=== PATIENT | male | born 1965 | race African-American/Black ===

== ENCOUNTER 2021-07-29 23:44 | Inpatient (IN) | payer OTHER ==
[~2021-07-29] VITALS: Ht 175.3 cm; Wt 139.7 kg
--- NOTE | ~2021-07-29 | EMS ---
[address] [address] EMS Patient Care Report Name: FLOWER HENLEY Room #: 448-P ADM IN M.R.#: [id number] Admission: 07/30/21 Attend Phys: Rosmery Nino MD Discharge: Date of : 67 Report #: [id number] THIS REPORT FOR: //name// Report Transmitted: 07/30/2021 09:49 EMS Care Summary [place], [place]/[facility] Incident [id number] @ 07/29/2021 22:57 Incident Location [address] [place], [place] [id number] Patient FLOWER HENLEY Male, 55 Years 1965 Patient Address [address] [place], [place] [id number] Patient History Diabetes,Hypertension (HTN),Stroke/CVA, Patient Allergies No known allergies, Patient Medications Insulin, Metformin, Chief Complaint BILATERAL LEG WEAKNESS Disposition Transported No Lights/[place] Dispatch Reason Falls Transported To [facility] Narrative PUMPER 30/MEDIC 30 WERE DISPATCHED TO THE ADDRESS LSITED PREVIOUSLY IN THIS REPORT ON A FALL. UPON ARRIVAL, EMS ONBSERVED ONE MALE APTIENT SITNNG UPRIGN ON A COUCH. PATIENT WAS TRACKING EMS UPON APPROACH. PATIENT INFOREMD EMS THAT HE HAD FALLEN TWO HOURS PRIOR TO EMS ARRIVAL, PATIENT STATED THAT HE HAD BEEN [facility] [address] [place] [address] EMS Patient Care Report Name: FLOWER HENLEY Room #: 448-P [facility] IN M.R.#: [id number] Admission: 07/30/21 Attend Phys: Rosmery Nino MD Discharge: Date of : 67 Report #: [id number] HAVING INCREASING WEAKNESS IN HIS LEGS AND WAS NO LONGER AMBLE TO AMBULATE. PATIENT WAS THEN PLACED ON A STAIRCHAIR, MOVED TO THE COT AND LOADED INTO THE AMBULANCE WITHOUT INCIDENT. ONCE IN THE AMBULANCE, VITAL SIGN MONITORING CONTINUED. ONCE ENROUTE TO THE RECEIVING FACILITY ([facility] VITAL SIGN MONITORING CONTINUED AND RADIO REPORT WAS GIVEN. UPON ARRIVAL AT THE RECEIVING FACILITY, PATIENT WAS MOVED FROM THE AMBULANCE TO THE HOSPITAL COT WITHOUT INCIDENT. VERBAL REPORT WAS GIVEN TO THE PATIENT'S NURSE AND PATIENT CARE WAS TRANSFERRED. Initial Vitals @23:25P: 109,R: 16,BP: 136/73,Pain: 0/10,GCS: 15,Temp: 100.1F,CO: 6,SpO2: 96,Revised Trauma: 12, Assessments @23:04MENTAL:Event Oriented,Time Oriented,Person Oriented,Place Oriented,SKIN:HEENT:LUNG SOUNDS:ABDOMEN:PELVIS//GI:EXTREMITIES:Right Leg: Weakness,Left Leg: Weakness,PULSE:Radial: 2+ Normal,NEURO: Impression Generalized Weakness Procedures @23:04ALS AssessmentResponse: UnchangedSucceeded Timeline 22:56,Call Received 22:56,Dispatch Notified 22:57,Dispatched 22:59,En Route 23:03,On Scene 23:04,At Patient 23:04,ALS Assessment,Response: UnchangedSucceeded, 23:25,BP: 136/73 M,PULSE: 109,RR: 16 R,SPO2: 96 Ox,ETCO2: ,BG: ,PAIN: 0,GCS: 15, 23:27,Depart Scene 23:40,At Destination 00:10,Call Closed Disclaimer v1.1 Copyright 2020 [email or web address], [employer] This EMS Care Summary contains data elements from the applicable legal record (which may be displayed differently). It is designed to provide pertinent information for the following purposes: continuity of care, clinical quality, and state data reporting. The complete legal record is available to ED staff and administrators of the receiving hospital in [employer] Patient Tracker. All data is provided "as is."
[~2021-07-29 23:44] MED LIST: CARVEDILOL12.5 MG PO; LIPITOR40 MG PO; METFORMIN HCL500 M3 PO; NORVASC10 MG PO
[2021-07-29 23:53] VITALS: BP 154/70
[2021-07-30 01:52] LABS: URINE BILIRUBIN 1+ (Negative); URINE BLOOD 1+ (Negative); URINE CLARITY CLEAR; URINE COLOR YELLOW; URINE GLUCOSE-RANDOM* 3+ (Negative); URINE KETONES 2+ (Negative); URINE LEUKOCYTES-REFLEX NEGATIVE (Negative); URINE NITRITE-REFLEX NEGATIVE (Negative); URINE PROTEIN (DIPSTICK) 2+ (Negative); URINE SPECIFIC GRAVITY 1.015 (1.005-1.035)
[2021-07-30 02:08] LABS: CASTS None Seen /LPF (None Seen); MUCUS 0-3 Light strn/LPF (None Seen); SQUAMOUS 0-3 Few /LPF (0-3); URINE RBC 1-2 Rare /HPF (NONE SEEN)
[2021-07-30 02:09] LABS: BACTERIA-REFLEX None Seen /HPF (None Seen); CRYSTALS None Seen /LPF (None Seen); URINE WBC-REFLEX None Seen /HPF (0-5)
[2021-07-30 02:10] LABS: ABSOLUTE NEUTROPHILS 13.8 thou/uL (1.4-8.2); BASOPHILS 0.4 % (0.0-2.0); HEMATOCRIT 32.7 % (42.0-52.0); HEMOGLOBIN 10.6 gm/dL (14.0-18.0); MCH 29.2 pg (26.0-34.0); MCHC 32.2 g/dL (28.0-37.0); MCV 90.5 fL (80.0-100.0); MONOCYTES 6.9 % (1.0-8.0); PLATELET COUNT 216 thou/uL (150-400); POLYS 84.7 % (36.0-66.0); RBC 3.62 mil/uL (4.50-6.00); WBC 16.3 thou/uL (4.0-11.0)
[2021-07-30 02:22] LABS: ALBUMIN 2.5 g/dL (3.4-5.0); CALCIUM 8.1 mg/dL (8.5-10.1); POTASSIUM 3.6 mmol/L (3.5-5.1); TOTAL BILIRUBIN 1.3 mg/dL (0.2-1.0); TOTAL PROTEIN 7.9 g/dL (6.4-8.2)
--- NOTE | 2021-07-30 07:10 | EKG ---
[address] [address] ELECTROCARDIOGRAM REPORT Name: FLOWER HENLEY Room #: 170-1 ADM IN M.R.#: [id number] Admission: 07/30/21 Attend Phys: Rosmery Nino MD Discharge: Date of : 67 Report #: [id number] [facility] ED Test Date: 2021-07-29 Test Time: 23:49:06 Pat Name: FLOWER HENLEY Department: Room: 170 Gender: M Claim Technician: kelly : 1965 Requested By: Bharathi Rizvi Order Number: [id number] MD: Simba Rousseau Measurements Intervals [place] Rate: 102 P: 138 PA: 208 QRS: -15 QRSD: 90 T: 177 QT: 346 QTc: 451 Interpretive Statements Sinus tachycardia Prolonged PA interval LVH with secondary repolarization abnormality Anterior Q waves, possibly due to LVH No previous ECG available for comparison Electronically Signed On 07-30-2021 7:10:12 CDT by Simba Rousseau [email or web address] <ELECTRONICALLY SIGNED> By: Simba Rousseau MD, [facility] 07/30/21 0710 [id number] [id number] Simba Rousseau MD, FACC /EPI
[2021-07-30 07:32] VITALS: BP 118/53
[2021-07-30 07:38] VITALS: BP 116/52
[2021-07-30 08:45] VITALS: BP 141/69
--- NOTE | 2021-07-30 10:25 | NUR ---
Pt transferred jordin unit from ED. Pt a&px4. Reports weakness in BLE. IVF and IV antibiotics infusing. No open wound observed on pt's buttocks or back. RA. ID and wound care consulted. Call light within reach. Fall precautions in place. Will continue to monitor.
[2021-07-30 11:33] VITALS: BP 150/78
[2021-07-30 15:19] VITALS: BP 143/71
--- NOTE | 2021-07-30 16:05 | NUR ---
ASSESSMENT: CM REVIEWD CHART AND SPOKE WITH PATIENT. PT APPEARS ALERT AND ORIENTED X4. PT WAS ADMITTED WITH SEPSIS AND GLUTEAL WOUND. WOUND CARE IS FOLLOWING AND PT IS CURRENTLY ON IV ANBX. PER RECORDS PT HAS A HX OF CVA. PT REPORTS LIVING IN A HOUSE WITH HIS SISTER AND HER . PT REPORTS HE IS INDEPENDENT WITH ADLS AND AMBULATION. PT REPORTS NO PAST HX OF HH OR SNF. PT REPORTS HE DOES NOT HAVE ANY DME. CM WILL CONTINUE TO FOLLOW TO ASSIST NEEDED.
[2021-07-30 20:29] VITALS: BP 149/69
[2021-07-31] VITALS (8 sets, daily range): BP systolic 165–173; BP diastolic 75–89
[2021-07-31 04:07] LABS: GLYCOHEMOGLOBIN (HGB A1C) 14.5 % (4.8-5.6)
--- NOTE | 2021-07-31 06:00 | HC ---
[facility] [place] [address] CONSULTATION Name: FLOWER HENLEY Room #: 448-P ADM IN M.R.#: [id number] Admission: 07/30/21 Attend Phys: Rosmery Nino MD Discharge: Date of : 67 Report #: [id number] THIS REPORT FOR: cc: FAM - Family physician unknown FAM - Family physician unknown Timbo Rios MD ~ DATE OF SERVICE: 07/30/2021 INFECTIOUS DISEASE CONSULTATION ATTENDING PHYSICIAN: Dr. Nino. REASON FOR EVALUATION: Progressive weakness. HISTORY OF PRESENT ILLNESS: The patient with uncontrolled diabetes mellitus. It is not clear that he has had otherwise localizing signs. States he was just unable to get up, ____ fevers, chills and now his appetite has been satisfactory. On evaluation, coronavirus testing was negative. Urinalysis was generally unremarkable. Sed rate, however, was elevated markedly at greater than 125. CBC elevated at 16.3 for a white count and he was anemic at 10.6 hemoglobin. Creatinine was 2.0 and glucose was 610. Sodium perhaps artificially low at 129. Procalcitonin mildly elevated at 1.76. Lactic acid 1.3. Imaging of the spine including the sacrum and lumbar spine was otherwise unrevealing. Chest x-ray showed no acute process. Blood cultures have been collected and are in progress, so empirically started on ceftriaxone and vancomycin. ALLERGIES: None known. CURRENT MEDICATIONS: Include vancomycin, enoxaparin, p.r.n. analgesics, antiemetics. PAST MEDICAL HISTORY: Diabetes mellitus, poorly controlled; hypertension; previous stroke with left-sided weakness. SOCIAL HISTORY: Nonsmoker, occasional ethanol. FAMILY HISTORY: Noncontributory. REVIEW OF SYSTEMS: Otherwise, unremarkable. PHYSICAL EXAMINATION: GENERAL: He is pleasant, alert, cooperative, moderately obese, mild to moderate distress. He is generally lucid. VITAL SIGNS: Temperature 98.2, temperature earlier 100.4 orally; pulse 85; respirations 16; blood pressure 141/69. [facility] [address] [place] [address] CONSULTATION Name: FLOWER HENLEY Room #: [address] [place] [address] [place] [facility].#: [id number] Admission: 07/30/21 Attend Phys: Rosmery Nino MD Discharge: Date of : 67 Report #: [id number] SKIN: Warm, dry, no rashes. HEENT: Normocephalic. Extraocular muscles intact. NECK: Supple. LUNGS: Diminished breath sounds. HEART: Regular. I do not appreciate a murmur. ABDOMEN: Mildly firm, distended, nontender. EXTREMITIES: No cyanosis. There is a questionable area on his right posterior thigh, buttock site. It was opened, although evaluation did not see clear ulcer. GENITOURINARY AND RECTAL: Deferred. DIAGNOSTIC AND LABORATORY DATA: Imaging of the lumbar spine, no evidence of epidural abscess, ____ canal stenosis and ____ no evidence of osteomyelitis. Electrolytes: Sodium 129, potassium 3.6, chloride 93, bicarbonate is 23, anion gap of 13, BUN and creatinine 12 and 2.0, glucose of 612, total bilirubin 1.3, albumin 2.5, total protein 7.9. CBC: White count 16.3, H and H 10.6 and 32.7, platelets of 216. Sed rate greater than 25. ProBNP of 1154. Urinalysis unremarkable. ASSESSMENT AND PLAN: Low-grade fevers, difficult to ascertain if this is primary component of his illness including progressive weakness. He does have marked inflammatory marker elevation. Blood cultures are pending. Certainly cannot exclude septicemia, as not entirely clear about the source. We will go ahead and continue empiric therapy with ceftriaxone and vancomycin. It is reasonable to check a CT abdomen and pelvis to exclude an occult process at this point. It may simply be just uncontrolled diabetes mellitus with poor compliance to his medical regimen. He is certainly at risk for additional complications. <ELECTRONICALLY SIGNED> By: Timbo Rios MD 07/31/21 0600 1009 [id number] Timbo Rios MD /nt
[2021-07-31 06:51] LABS: HEMATOCRIT 29.6 % (42.0-52.0); HEMOGLOBIN 9.7 gm/dL (14.0-18.0); MCH 29.3 pg (26.0-34.0); MCHC 32.7 g/dL (28.0-37.0); MCV 89.5 fL (80.0-100.0); RBC 3.31 mil/uL (4.50-6.00); RDW 13.2 % (10.5-14.5); WBC 12.8 thou/uL (4.0-11.0)
[2021-07-31 07:01] LABS: CREATININE 1.3 mg/dL (0.7-1.3); POTASSIUM 3.3 mmol/L (3.5-5.1)
--- NOTE | 2021-07-31 08:19 | NUR ---
ASSUMED CARE AT 1900, PT LAYING COMFORTABLY IN BED, REPORTS NO PAIN OR DISCOMFORT, CALL LIGHT WITHIN REACH, PURULENT DRAINAGE NOTED ON THE COCCYX, CARSON CARE PROVIDED, REPORTS NO PAIN, REPOSITIONED EVERY TWO HOURS AND NEEDED, DISCOLORATION NOTED ON BILAT EXTREMITY, TOLARATED TX WELL, NO ADVERSE REACTION NOTED SLEPT THROUGH THE NIGHT. WILL CONTINUE TO MONITOR.
--- NOTE | 2021-07-31 18:43 | NUR ---
Pt A & O x4. Pt had surgery this shift. pt VS stable. pt received medications as ordered. Pt is room air. Pt is able to make needs known.
--- NOTE | 2021-08-01 04:00 | NUR ---
BP ELEVATED, HOME MEDS RESTARTED, BETTER THIS AM. PAIN MANAGED BY OXYCODONE.POST OP DRSG TO R GLUTEAL FOLD-OFF LOADED NEEDED. GROIN CLEANED AND NYSTATIN POWDER APPLIED.
[2021-08-01 05:18] VITALS: BP 136/62
[2021-08-01 06:05] LABS: HEMATOCRIT 29.2 % (42.0-52.0); HEMOGLOBIN 9.6 gm/dL (14.0-18.0); MCH 29.4 pg (26.0-34.0); MCHC 32.8 g/dL (28.0-37.0); MCV 89.6 fL (80.0-100.0); RBC 3.26 mil/uL (4.50-6.00); RDW 13.3 % (10.5-14.5); WBC 10.3 thou/uL (4.0-11.0)
[2021-08-01 07:04] LABS: CALCIUM 7.5 mg/dL (8.5-10.1); CREATININE 1.3 mg/dL (0.7-1.3); POTASSIUM 3.4 mmol/L (3.5-5.1)
[2021-08-01 09:16] VITALS: BP 151/71
[2021-08-01 13:00] VITALS: BP 130/63
--- NOTE | 2021-08-01 16:22 | NUR ---
ASSUMED CARE OF PT AT 0700 THIS MORNING. PT IS A/OX4 AND HAD NO COMPLAINTS AT THIS TIME. WOUND DR. MOCTEZUMAED DRESSING AND PT DID START TO HURT WORSE. PT GIVEN PAIN MEDS. WOUND IN ON THE LT COCCYX AREA AND DRESSING IS C/D/I. ASSESSMENTS NOTED IN CHART AND OTHERWISE UNREMARKABLE. PT IS BED BOUND DUE TO WEAKNESS AND FEVER. PT'S TEMP HAS BEEN AFEBRIAL THROUGHOUT THE SHIFT. FALL PRECAUTIONS ARE IN PLACE, MEDS AND TX GIVEN NEEDED AND SCHEDULED. WILL MONITOR AND NOTE ANY CHANGES.
[2021-08-01 16:35] VITALS: BP 132/64
[2021-08-01 19:48] VITALS: BP 119/60
--- NOTE | 2021-08-02 03:01 | NUR ---
ASSUMED CARE OF PT AT 1900. BEDSIDE REPORT RECIEVED. GALA ASSESSMENT COMPLETE. PT C/O 6/10 BUTTOCKS PAIN. UTILIZED PAIN MEDS AND REPOSITIONING FOR COMFORT. TELE LEADS REPLACED. MEDS GIVEN ORDERED. INSULIN GIVE PER DEC, NURSE VERIFICATION DONE. IVF RUNNING ORDERED. WOUND DRSG CDI, BARRIER CREAM APPLIED. USES URINAL AND BEDPAN. REFILLED WATER. ALL NEEDS MET. CALL LIGHT IN REACH.
[2021-08-02 04:59] VITALS: BP 132/66
[2021-08-02 05:45] LABS: CALCIUM 7.1 mg/dL (8.5-10.1); CREATININE 1.6 mg/dL (0.7-1.3); POTASSIUM 3.4 mmol/L (3.5-5.1)
[2021-08-02 05:50] LABS: HEMATOCRIT 27.1 % (42.0-52.0); HEMOGLOBIN 9.1 gm/dL (14.0-18.0); MCHC 33.4 g/dL (28.0-37.0); MCV 89.8 fL (80.0-100.0); RBC 3.02 mil/uL (4.50-6.00); RDW 13.6 % (10.5-14.5); WBC 9.5 thou/uL (4.0-11.0)
[2021-08-02 08:21] VITALS: BP 145/61
[2021-08-02 08:37] VITALS: BP 102/52
--- NOTE | 2021-08-02 12:57 | NUR ---
RE-ASSUMED CARE OF PT AT 0700 THIS MORNING. ASSESSMENTS NO CHANGE AND NOTED IN CHART AND OTHERWISE UNREMARKABLE. CHANGED PT'S DRESSING AND PACKING THIS MORNING WITH DR. WILCOX. NO OTHER CHANGES NOTED. FALL PRECAUTIONS ARE IN PLACE. CALL LIGHT AND OTHER NEEDS ARE IN REACH. MEDS AND TX GIVEN NEEDED AND SCHEDULED. WILL MONITOR AND NOTE ANY CHANGES.
--- NOTE | 2021-08-02 15:50 | NUR ---
Discussed during los with the hospitalist. Possible ready for dc today or tomorrow. He getting IV abx and wound care. Medicaid, will see if going to need hh nurse only. Spoke with kerry, education on hh for nurse only r/t his tx and area. he will not be able to change his on dressing with the location. Kerry voice any home health is fine.
[2021-08-02 16:14] VITALS: BP 153/62
[2021-08-02 16:34] VITALS: BP 153/62
[2021-08-02 19:56] VITALS: BP 152/76
[2021-08-03 04:12] VITALS: BP 138/67
[2021-08-03 05:51] LABS: HEMATOCRIT 27.8 % (42.0-52.0); HEMOGLOBIN 9.1 gm/dL (14.0-18.0); MCH 29.3 pg (26.0-34.0); MCHC 32.5 g/dL (28.0-37.0); RBC 3.09 mil/uL (4.50-6.00); RDW 13.4 % (10.5-14.5)
[2021-08-03 06:12] LABS: CALCIUM 7.2 mg/dL (8.5-10.1); CREATININE 1.8 mg/dL (0.7-1.3); POTASSIUM 3.4 mmol/L (3.5-5.1)
--- NOTE | 2021-08-03 06:39 | NUR ---
Pt A/OX4,VSS. C/o pain to right buttocks medicated with Oxy at shift change with relief reported,declines need for pain meds at this time. Dsg in place on buttock. Voiding per urinal at NOC,had an episode of incontinence at night. SR on telemetry. Fall precautions in place,
[2021-08-03 08:05] VITALS: BP 164/78
--- NOTE | 2021-08-03 08:40 | HC ---
[facility] [place] [address] CONSULTATION Name: LORYFLOWER Room #: 448-P [facility] IN M.R.#: [id number] Admission: 07/30/21 Attend Phys: Rosmery Nino MD Discharge: Date of : 67 Report #: [id number] THIS REPORT FOR: cc: FAM - Family physician unknown FAM - Family physician unknown Aguilar Richardson MD ~ DATE OF SERVICE: 08/01/2021 REASON FOR CONSULTATION: Status post Dr. David Mckeon incision and drainage, right gluteal abscess. HISTORY OF PRESENT ILLNESS: The patient is a 55-year-old gentleman with diabetes mellitus type 2 and history of cerebrovascular accident, who presented to the Emergency Room after evaluation for leg weakness and a fall. He had also noticed that he had pain in his right buttock for about a week. He has been applying Vaseline. The patient was noted to have an abscess of the right buttock clinically. White blood count was 16.3. The patient was taken to the operating room by Dr. David Mckeon on 07/31/2021 for incision and drainage of a right gluteal abscess. Dr. Mckeon drained the right gluteal abscess in the operating room and white blood count subsequently, which was 16.3 on 07/30/2021, was 12.8 yesterday 07/31/2021 and is 10.3 today 08/01/2021. The patient remained afebrile. He has less pain now that the abscess has been drained. Abscess cavity was packed with Kerlix. The patient is on IV antibiotics, ceftriaxone and vancomycin. Wound cultures are pending. PAST MEDICAL HISTORY: 1. Diabetes mellitus type 2. Takes metformin. 2. Hypertension. 3. Status post cerebrovascular accident. 4. Recent weakness and a fall. ALLERGIES: No known drug allergies. REVIEW OF SYSTEMS: Noncontributory. LABORATORY: White blood count was 16.3, now 10.3, albumin 2.5. PHYSICAL EXAM: GENERAL: Shows a well-appearing, morbidly obese gentleman who is alert, pleasant and conversant. Focused physical examination shows incision and drainage site of the right anterior buttock near the anus. This is a linear 4 cm incision. Large amount of Kerlix packing is removed. There is some foul odor with no obvious purulence. Wound cavity was repacked with plain Kerlix and an order placed for 1-inch plain gauze packing strips soaked in quarter strength Dakin's gauze. [address] [address] CONSULTATION Name: FLOWER HENLEY Room #: 448-P [facility] IN [facility]#: [id number] Admission: 07/30/21 Attend Phys: Rosmery Nino MD Discharge: Date of : 67 Report #: [id number] IMPRESSION: 1. Morbid obesity. 2. 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 3. Status post cerebrovascular accident. 4. Right gluteal abscess, status post incision and drainage. PLAN: IV antibiotics, pack wound daily with 1-inch plain gauze packing strips soaked in quarter-inch Dakin's gauze. Wound care team will follow. Continue IV antibiotics. <ELECTRONICALLY SIGNED> By: Aguilar Richardson MD 08/03/21 0840 1001 1348 Aguilar Richardson MD /nt
--- NOTE | 2021-08-03 10:40 | NUR ---
Pt with gluteal abscess s/p debridement. Hx CVA, DM, HTN, class III obesity with BMI of 45.5. On IV abx. BG appear poor controlled with A1C 14.5, in hospital BG much improved 194-235 with insulin. Attempted visit, however pt sleeping soundly with room darkened so did not disturb. Intake records show 40-80% of meals. Physician has indicated moderate protein calorie malnutrition: RD will defer. Will add 1 glucerna shake per day until intake more consistently >75% of meals. Avaiable for diet education if pt has questions. Low nutrition risk
--- NOTE | 2021-08-03 15:00 | NUR ---
RE-ASSUMED CARE OF PT AT 0700 THIS MORNING. PT HAD NO CHANGE SINCE REPORT WAS GIVEN LAST NIGHT, ASSESSMENTS NOTED IN CHART AND OTHERWISE UNREMARKABLE. PT HAS BEEN WORKING WITH PHYS THPY AND OT TO GAIN STRENGTH. FALL PRECAUTIONS ARE IN PLACE. CALL LIGHT AND OTHER NEEDS ARE IN REACH. MEDS AND TX GIVEN NEEDED AND SCHEDULED. WILL MONONITOR AND NOTE ANY CHANGES.
--- NOTE | 2021-08-03 15:42 | NUR ---
DCP: home with tio mix nurse only, wound care.
[2021-08-03 16:30] VITALS: BP 186/86
--- NOTE | 2021-08-03 18:00 | NUR ---
SUMMONED TO PT ROOM FOR C/O SHORTNESS OF BREATH. PT IN NO ACUTE DISTRESS BUT DID STATE HE FELT SOME DIFFICULTY BREATHING. O2 SAT 86% ON RA. O2 NC PLACED ON PT AT 3L AND SAT IMMEDIATELY CAME UP TO 92 BUT DROPPED SOME SO INCREASED TO 4L. DR. OSEI PAGED AND ORDERED STAT PCXR AND IF CLEAR TO GET STAT ABG'S. RESP THERAPY ALSO PAGED TO MAKE PT ASSESSMENT. SAT STAYING AT 92%. TELE SHOWING ST 110'S.
[2021-08-03 19:18] LABS: BE(vivo) -2.5 mmol/L (-2 to +3); HCO3 21.7 mmol/L (22.0-26.0); pH 7.399 (7.360-7.450); sO2 83.9 % (92.0-98.0)
[2021-08-03 19:20] LABS: PO2 47.8 mmHg (80.0-100.0)
[2021-08-03 19:56] VITALS: BP 156/81
[2021-08-04 04:44] VITALS: BP 145/75
[2021-08-04 06:48] LABS: HEMATOCRIT 26.4 % (42.0-52.0); HEMOGLOBIN 8.9 gm/dL (14.0-18.0); MCH 30.3 pg (26.0-34.0); MCHC 33.9 g/dL (28.0-37.0); MCV 89.4 fL (80.0-100.0); RBC 2.95 mil/uL (4.50-6.00); RDW 13.8 % (10.5-14.5); WBC 9.8 thou/uL (4.0-11.0)
--- NOTE | 2021-08-04 07:24 | NUR ---
RECEIVED CARE OF THIS PATIENT AT 1900. PATIENT ALERT AND ORIENTED X4. DRESSING ON BOTTOM INTACT. ACCUCHECK 189, RECEIVED 3 UNIT LISPRO INSULIN. BREATHING THROUGHOUT THE NIGHT HAS BEEN REGULAR AND UNLABOREDSTILL HAS O2 AT 4L/NC. C/O PAIN, MED GIVEN. SLEPT MOST OF NIGHT.
[2021-08-04 07:25] LABS: CALCIUM 7.6 mg/dL (8.5-10.1); CREATININE 1.9 mg/dL (0.7-1.3); POTASSIUM 3.6 mmol/L (3.5-5.1)
[2021-08-04 08:55] VITALS: BP 150/80
[2021-08-04 12:55] VITALS: BP 161/77
[2021-08-04 15:38] VITALS: BP 150/73
--- NOTE | 2021-08-04 15:47 | NUR ---
Case discussed with the care team. DC to home with hh on hold due to change in respiratory status and need for 4liters of o2. Workup for r/o PE in progress. Carmita updated.
[2021-08-04 20:05] VITALS: BP 148/68
[2021-08-05] VITALS (7 sets, daily range): BP systolic 146–213; BP diastolic 71–94
--- NOTE | 2021-08-05 00:48 | NUR ---
ASSESSSMENT COMPLETED. PT ALERT AND ORIENTED X 4. ENCOURAGED TO SIT UP IN BED AND USE THE I/S. DINNER SITTING BY BEDSIDE, PT STATED HE DID NOT KNOW IT WAS THERE?HE ATE SOME GRAM CRACKERS AND DRANK SOME MILK. AFEBRILE.CONTINUES ON /, NO SIGNS OF DISTRESS. GETS SOA WITH ACTIVITY LIKE PULLING SELF UP IN BED. DRSG TO R GLUTEAL FOLD IS INTACT. PT USING URINAL, VOIDING ADEQUATELY. IVF TO LFA. FALL PREC IN PLACE.PT WITH NO CONCERNS. CALL LIGHT WITHIN REACH.
--- NOTE | 2021-08-05 10:46 | NUR ---
Assumed care of pt at 0700. Pt a&ox4. Pain controlled with prn pain medications. Dressing changed. Up to the chair. Pt needs encouragement to be more active, to get out of bed, and ambualate. On 2L O2. IVF infusing. Call light within reach. Will continue to monitor.
[2021-08-05 12:51] LABS: BASOPHILS 0.4 % (0.0-2.0); EOSINOPHILS 3.2 % (0.0-3.0); HEMATOCRIT 31.6 % (42.0-52.0); HEMOGLOBIN 10.2 gm/dL (14.0-18.0); LYMPHOCYTES 9.8 % (24.0-44.0); MCH 29.2 pg (26.0-34.0); MCHC 32.3 g/dL (28.0-37.0); MCV 90.5 fL (80.0-100.0); POLYS 77.6 % (36.0-66.0); RBC 3.49 mil/uL (4.50-6.00); RDW 13.8 % (10.5-14.5); WBC 10.3 thou/uL (4.0-11.0)
[2021-08-05 13:01] LABS: CALCIUM 8.2 mg/dL (8.5-10.1); POTASSIUM 3.7 mmol/L (3.5-5.1)
[2021-08-05 13:26] LABS: PLATELET COUNT 368 thou/uL (150-400)
--- NOTE | 2021-08-06 02:02 | NUR ---
ASSESSMENT COMPLETED. PT OBSERVED LAYING IN BED, SEVERAL VISITORS WERE IN ROOM. PT BUTTOCK WOUND DRSG WAS OFF THEREFORE REDONE-PT TOLERATED PROCEDURE WELL. PT ECOURAGED TO SIT UP IN BED AND USE I/S. HE IS VOIDING ADEQUATELY. ABDOMEN APPEARS DISTENDED, PT DENIES ANY ABDOMINAL DISCOMFORT AND REPORTS THAT HE HAD BM EARLIER IN THE DAY.AT AROUND 2200, PT GOT UP AND WAS C/O OF TROUBLE BREATHING WELL FEELING ANXIOUS-BP CHECKED AND WAS ELEVATED. PT FELT HOT, HE SAT UP ALITTLE BIT AND APPEARED TO BE RELAXING- BP RESOLVED WITHOUT ANY MEDS-PRN MEDS ON BOARD.FALL PREC IN PLACE, CALL LIGHT WITHIN REACH.
[2021-08-06 05:19] LABS: HEMATOCRIT 25.7 % (42.0-52.0); HEMOGLOBIN 8.6 gm/dL (14.0-18.0); MCH 30.5 pg (26.0-34.0); MCHC 33.6 g/dL (28.0-37.0); MCV 90.6 fL (80.0-100.0); RBC 2.83 mil/uL (4.50-6.00); RDW 13.3 % (10.5-14.5)
[2021-08-06 05:35] LABS: CALCIUM 7.7 mg/dL (8.5-10.1); POTASSIUM 3.9 mmol/L (3.5-5.1)
[2021-08-06 07:53] VITALS: BP 154/77
--- NOTE | 2021-08-06 12:05 | NUR ---
KELLY CALLED AND GOT [employer] PRIOR AUTH FOR A FWW THIS AM. CM FAXED INFO AND SCRIPT TO [facility]. PT IS ON 3L O2 CURRENTLY. CARE TEAM INDICATED THAT THEY HOPE TO FURTHER DIURESE PT IN HOPES THAT HE CAN WEAN OFF O2 PRIOR TO DC. SHOULD PT NEED O2 UPON DC EXERCISE OX WOULD NEED TO BE DONE. TEAM WOULD NEED TO CALL LAURIE AGUERO AUTH AT FOR THE O2. FAX EXERCISE OX, SCRIPT FOR DESIGANATED LITER FLOW, AND CLINICAL INFO TO [facility] AT CALL THEM AT TO NOTIFY THEM OF REFERRAL AND ASK FOR A PORTABLE TANK TO BE DELIVERED PRIOR TO DC. PT TO HAVE [facility]URSING FOR WOUND CARE UPON DC. FAX FINAL ORDERS TO CALL THEM AT . KELLY FOLLOWING REGARDING DC PLANNING.
--- NOTE | 2021-08-06 12:31 | 2DMMODE ---
[facility] [place] [address] 2 D/M-MODE ECHOCARDIOGRAM Name: FLOWER HENLEY Room #: 448-P ADM IN M.R.#: [id number] Admission: 07/30/21 Attend Phys: Rosmery Nino MD Discharge: Date of : 67 Report #: [id number] THIS REPORT FOR: cc: FAM - Family physician unknown FAM - Family physician unknown Simba Rousseau MD [facility] ~ APPROVED REPORT Study performed: 08/06/2021 11:51:48 EXAM: Comprehensive 2D, Doppler, and color-flow Echocardiogram Patient Location: Bedside Room #: [facility] Status: routine BSA: 2.48 HR: 84 bpm BP: 154/77 mmHg Rhythm: NSR Other Information Study Quality: Adequate Indications Hypoxia. Hx: uncontrolled DM, HTN, CVA 2D Dimensions RVDd: 32.46 mm IVSd: 11.78 (7-11mm) LVOT Diam: 21.15 (18-24mm) LVDd: 52.88 mm PWd: 12.38 (7-11mm) LVDs: 36.99 (25-40mm) Left Atrium: 41.72 (27-40mm) Aortic Root: 35.00 mm Volumes Left Atrial Volume (Systole) Single Plane 4CH: 57.85 mL Single Plane 2CH: 45.95 mL LA ESV Index: 23.00 mL/m2 Aortic Valve AoV Peak Issa.: 1.42 m/s AO Peak Gr.: 8.09 mmHg LVOT Max P.42 mmHg LVOT Max V: 0.93 m/s [address] [place] [address] 2 D/M-MODE ECHOCARDIOGRAM Name: FLOWER HENLEY Room #: 448-P [facility] IN .R.#: [id number] Admission: 07/30/21 Attend Phys: Mara Bryson Discharge: Date of : 67 Report #: [id number] COLTEN Vmax: 2.28 cm2 Mitral Valve E/A Ratio: 2.1 MV Decel. Time: 161.38 ms MV E Max Issa.: 1.40 m/s MV A Issa.: 0.68 m/s MV PHT: 46.80 ms IVRT: 43.83 ms Pulmonary Valve PV Peak Issa.: 0.59 m/s PV Peak Gr.: 1.41 mmHg Pulmonary Vein P Vein S: 0.41 m/s P Vein D: 0.79 m/s P Vein S/D Ratio: 0.52 Tricuspid Valve RAP Estimate: 5.00 mmHg Left Ventricle The left ventricle is normal size. There is normal LV segmental wall motion. Mild concentric left ventricular hypertrophy. Left ventricular systolic function is normal. LVEF is 60%. Moderate diastolic dysfunction is present (pseudonormal filling). Right Ventricle The right ventricle is normal size. The right ventricular systolic function is normal. Atria The left atrium size is normal. The right atrium size is normal. Aortic Valve The aortic valve is normal in structure. No aortic regurgitation is present. There is no aortic valvular stenosis. Mitral Valve The mitral valve is normal in structure. Trace mitral regurgitation. Tricuspid Valve The tricuspid valve is normal in structure. There is no tricuspid valve regurgitation noted. Unable to assess PA pressure. [address] [place] [address] 2 D/M-MODE ECHOCARDIOGRAM Name: FLOWER HENLEY Room #: 448-P [facility] IN .R.#: [id number] Admission: 07/30/21 Attend Phys: Mara Bryson Discharge: Date of : 67 Report #: [id number] Pulmonic Valve Pulmonic valve is not well visualized. Great Vessels The aortic root is normal in size. Ascending aorta is not well visualized. IVC is normal in size and collapses >50% with inspiration. Pericardium There is no pericardial effusion. <Conclusion> Normal left ventricle size/mild concentric hypertrophy Ejection fraction 60% Normal right ventricular size/function Normal atrial size Normal aortic/mitral valve structure and function No tricuspid valve insufficiency No pericardial effusion Normal aortic root size. <ELECTRONICALLY SIGNED> By: Simba Rousseau MD, FACC 08/06/21 1231 1231 1231 Simba Rousseau MD, FACC /INF
[2021-08-06 16:13] VITALS: BP 181/88
[2021-08-06 20:42] VITALS: BP 145/68
[2021-08-07 05:22] VITALS: BP 137/68
[2021-08-07 05:36] LABS: HEMATOCRIT 25.5 % (42.0-52.0); HEMOGLOBIN 8.5 gm/dL (14.0-18.0); MCH 29.6 pg (26.0-34.0); MCHC 33.3 g/dL (28.0-37.0); RBC 2.86 mil/uL (4.50-6.00); RDW 13.3 % (10.5-14.5); WBC 7.6 thou/uL (4.0-11.0)
[2021-08-07 05:44] LABS: CALCIUM 8.2 mg/dL (8.5-10.1); CREATININE 1.9 mg/dL (0.7-1.3); POTASSIUM 3.5 mmol/L (3.5-5.1)
--- NOTE | 2021-08-07 07:55 | NUR ---
UPON SHIFT REPORT, PT AOX4. PT FAMILY MEMBER AT BEDSIDE. UPON SHIFT ASSESSMENT, PT REMAINS AOX4. PT DENIES PAIN. PT HAS PRN OXY IR Q4HR AVAILABLE. PT REPORTS SOB WITH EXERTION WHILE ON 3L O2 VIA NC, NO DESATURATIONS NOTED. PT TOLERATING PO INTAKE OF FLUIDS AND REGULAR DIET WITHOUT ISSUE. PT WITHOUT NAUSEA OR EMESIS. PT VOIDING PER BEDSIDE URINAL. PT RESTING IN BED THROUGHOUT SHIFT, FREQUENT REPOSITIONING ENCOURAGED. PT NOTED TO SHIFT INDEPENDENTLY. PT REPORTS CHRONIC NUMBNESS AND TINGLING IN BLE AND LEFT HAND. CAPILLARY REFILL LESS THAN 3SEC, PERIPHERAL PULSES PALPABLE IN ALL EXTREMITIES. PT ENCOURAGED TO NOTIFY STAFF FOR ALL NEEDS, CALL LIGHT WITHIN REACH, BED ALARM ON, BED LOCKED IN LOWEST POSITION, FREQUENT MONITORING WILL CONTINUE.
[2021-08-07 09:00] VITALS: BP 178/83
[2021-08-07 12:57] VITALS: BP 182/95
[2021-08-07 18:16] VITALS: BP 160/84
--- NOTE | 2021-08-07 18:30 | NUR ---
PT ASSESSED AT START OF SHIFT. PT PROGRESSING SOME W/ BREATHING BETTER. AMBULATING IN HALLS W/ WALKER AND USING I/S MORE REGULARLY. O2 AT 2L NC. ENC PT AND HE IS OUT OF BED MOST OF SHIFT. CARSON ANAL WOUND HEALING. DR. THORNE IN THIS AFTERNOON AND STATED IT LOOKED GOOD.
[2021-08-07 20:00] VITALS: BP 155/78
[2021-08-08 03:58] LABS: CALCIUM 8.1 mg/dL (8.5-10.1); CREATININE 1.8 mg/dL (0.7-1.3); MAGNESIUM 1.7 mg/dL (1.8-2.4); PHOSPHORUS 3.6 mg/dL (2.5-4.9); POTASSIUM 3.5 mmol/L (3.5-5.1)
--- NOTE | 2021-08-08 04:29 | NUR ---
DOTTIE CARE OF A PT AT 1900. BEDSIDE REPORT RECIEVED. GALA ASSESSMENT COMPLETE. MEDS GIVEN ORDERED. ASSISTED PT TO BATHROOM. PT HAD MEDIUM SIZED BM. PIV PATENT AND SALINE LOCKED. HOURLY ROUNDING CONTINUING. CALL LIGHT IN REACH.
[2021-08-08 04:45] LABS: ABSOLUTE NEUTROPHILS 4.5 thou/uL (1.4-8.2); BASOPHILS 1.3 % (0.0-2.0); EOSINOPHILS 3.2 % (0.0-3.0); HEMATOCRIT 26.4 % (42.0-52.0); HEMOGLOBIN 8.7 gm/dL (14.0-18.0); LYMPHOCYTES 24.6 % (24.0-44.0); MCH 29.6 pg (26.0-34.0); MCV 89.6 fL (80.0-100.0); MONOCYTES 9.6 % (1.0-8.0); PLATELET COUNT 384 thou/uL (150-400); POLYS 61.3 % (36.0-66.0); RBC 2.94 mil/uL (4.50-6.00); RDW 13.4 % (10.5-14.5); WBC 7.3 thou/uL (4.0-11.0)
[2021-08-08 08:30] VITALS: BP 168/79
--- NOTE | 2021-08-08 10:11 | NUR ---
ASSUMED PT CARE THIS AM. PT IS ALERT & ORIENTED X4. PT HAS IV SITE ON LFA SALINE LOCKED. PT IS UP WITH ASSIST X1 WITH GAITBELT AND WALKER TO THE BATHROOM. PT IS ON TELE MONITOR ON. PT IS ON 3L NC O2. PT IS ACCUCHECK ACHS. DID WOUND CARE THIS AM WITH NS, PACK WITH DAKIN'S MOIST GAUZE, ABD AND TAPE. LAST BM WAS TODAY. PT ON THE CHAIR, CALL LIGHT WITHIN REACH. WILL CONTINUE TO MONITOR PT. FOLLOW POC.
[2021-08-08 12:03] VITALS: BP 159/84
[2021-08-08 16:45] VITALS: BP 180/80
[2021-08-08 20:38] VITALS: BP 149/72
[2021-08-09 04:00] VITALS: BP 144/60
--- NOTE | 2021-08-09 06:35 | NUR ---
ASSUMED CARE AT 1900. PT REPORTS NO PAIN OR DISCOMOFOR, SLEPT THROUGH THE NIGHT, COMPLIANT TO TX, NO ADVERSE REACTION NOTED. WILL CONTINUE TO MONITOR.
--- NOTE | 2021-08-09 07:30 | EKG ---
[address] [address] ELECTROCARDIOGRAM REPORT Name: LORYFLOWER Room #: 448-P ADM IN M.R.#: [id number] Admission: 07/30/21 Attend Phys: Rosmery Nino MD Discharge: Date of : 67 Report #: [id number] [facility] Test Date: 2021-08-07 Test Time: 15:21:38 Pat Name: FLOWER HENLEY Department: Room: 448 P Gender: M Rehab Manager: HENRY : 1965 Requested By: Rosmery Nino Order Number: [id number] MD: Simba Rousseau Measurements Intervals [place] Rate: 77 P: 49 [place]: 227 QRS: 15 QRSD: 91 T: 244 QT: 402 QTc: 455 Interpretive Statements Sinus rhythm Prolonged [place] interval Low voltage, extremity leads Anteroseptal infarct, old Compared to ECG 07/29/2021 23:49:06 Low QRS voltage now present Sinus tachycardia no longer present Left ventricular hypertrophy no longer present Early repolarization no longer present Q waves no longer present Electronically Signed On 08-09-2021 7:30:23 CDT by Simba Rousseau [email or web address] <ELECTRONICALLY SIGNED> By: Simba Rousseau MD, FAC 08/09/21 0730 1521 1521 Simba Rousseau MD, [facility] /EPI
--- NOTE | 2021-08-09 07:30 | EKG ---
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 : 1965 Requested By: Nhi Funez Order Number: [id number] MD: Simba Rousseau Measurements Intervals [place] Rate: 77 P: 49 [place]: 227 QRS: 15 QRSD: 91 T: 244 QT: 402 QTc: 455 Interpretive Statements Sinus rhythm Prolonged [place] interval Low voltage, extremity leads Anteroseptal infarct, old Compared to ECG 07/29/2021 23:49:06 Low QRS voltage now present Myocardial infarct finding now present Sinus tachycardia no longer present Left ventricular hypertrophy no longer present Early repolarization no longer present Q waves no longer present Electronically Signed On 08-09-2021 7:30:15 CDT by Simba Rousseau [email or web address] <ELECTRONICALLY SIGNED> By: Simba Rousseau MD, FACC 08/09/21 0730 1521 1521 Simba Rousseau MD, FACC /EPI
[2021-08-09 08:25] VITALS: BP 145/75
--- NOTE | 2021-08-09 10:42 | NUR ---
Assumed care of pt at 0700. Pt a&ox4. Denies pain. Up to the chair. On 3L O2. Dressing changed. Call light within reach. Fall precautions in place. Will continue to monitor.
[2021-08-09] MEDS ORDERED: ACETAMINOPHEN325 M1 PO (13:23)
[2021-08-09] MEDS ORDERED: AMOX TR-K CLV1 EAC4 PO (13:23)
[2021-08-09] MEDS ORDERED: FREESTYLE SYST1 EACH SUBQ (13:23)
[2021-08-09] MEDS ORDERED: OXYCODONE HCL5 M1 PO (13:23)
[2021-08-09] MEDS ORDERED: TRADJENTA5 MG PO (13:23)
[2021-08-09] MEDS ORDERED: FREESTYLE TEST1 EACH SUBQ (13:23)
[2021-08-09] MEDS ORDERED: LANTUS SUBQ (13:23)
[2021-08-09] MEDS ORDERED: FREESTYLE LANC1 EACH MISCELL (13:23)
[2021-08-09 14:50] VITALS: BP 153/62
--- NOTE | 2021-08-09 15:07 | NUR ---
DISCHARGE NOTE: JESUS reviewed chart and spoke with nursing and attending physician. Pt is medically stable for discharge home today with HH and Home O2. JESUS met with pt at bedside to discuss discharge plan. JESUS discussed post-acute placement. Pt declines offer stating he prefers to go home with HH. Rest/exercise oximetry completed. Pt requires 3L at rest and 4L with activity. JESUS faxed O2 testing and script to [facility]. JESUS placed call to [place]. Spoke with Merna. Prior auth for home O2 obtained. JESUS updated [facility] liaison. Portable O2 tank to be delivered to pt's room. Pt to call [facility] to arrange the delivery of his home O2 equipment. JESUS faxed discharge ppwk to [facility] . Spoke with Bea in intake to confirm info was received. Contact info for HH and Home O2 placed in pt's discharge summary. Pt's family to provide transportation home. No additional SW needs identified at this time. SW is available to assist should needs arise.
[2021-08-09 17:19] VITALS: BP 153/62
== END 2021-08-09 19:01 | disposition home health service (06) | DRG 871 ==
LOC: ER 23:44 → 4S 07-30 03:48 → EROBS 07-30 03:48 → 4S 07-30 07:38
PROVIDERS: Emergency Medicine; Hospitalist; Internal Medicine; Nurse Practitioner Family; ADMIT Hospitalist; ATTEND Hospitalist
PROC: 0J990ZZ Drainage of Buttock Subcutaneous Tissue and Fascia, Open Approach (ICD-10-PCS; principal; 2021-07-31)
PROC: 5A09357 Assistance with Respiratory Ventilation, Less than 24 Consecutive Hours, Continuous Positive Airway Pressure (ICD-10-PCS; 2021-08-06)
DX: A41.9 Sepsis, unspecified organism (principal); J96.01 Acute respiratory failure with hypoxia; N17.0 Acute kidney failure with tubular necrosis; L02.31 Cutaneous abscess of buttock; E44.0 Moderate protein-calorie malnutrition; I50.32 Chronic diastolic (congestive) heart failure; I13.0 Hypertensive heart and chronic kidney disease with heart failure and stage 1 through stage 4 chronic kidney disease, or unspecified chronic kidney disease; I69.354 Hemiplegia and hemiparesis following cerebral infarction affecting left non-dominant side; Z68.42 Body mass index [BMI] 45.0-49.9, adult; E11.65 Type 2 diabetes mellitus with hyperglycemia; R23.4 Changes in skin texture; L98.499 Non-pressure chronic ulcer of skin of other sites with unspecified severity; E78.5 Hyperlipidemia, unspecified; E66.01 Morbid (severe) obesity due to excess calories; R53.81 Other malaise; N18.30 Chronic kidney disease, stage 3 unspecified; D63.8 Anemia in other chronic diseases classified elsewhere; M47.9 Spondylosis, unspecified; G47.33 Obstructive sleep apnea (adult) (pediatric); Z20.822 Contact with and (suspected) exposure to COVID-19; E11.22 Type 2 diabetes mellitus with diabetic chronic kidney disease
CPT/HCPCS: 10100; 50010; 50101; 50386; 50403; 62110; 62900; 70005

== ENCOUNTER → 2021-08-24 | Outpatient (CLI) | payer OTHER ==
[~2021-08-24] MED LIST changes: +ACETAMINOPHEN325 M1 PO; +AMOX TR-K CLV1 EAC4 PO; +FREESTYLE LANC1 EACH MISCELL; +FREESTYLE SYST1 EACH SUBQ; +FREESTYLE TEST1 EACH SUBQ; +LANTUS SUBQ; +OXYCODONE HCL5 M1 PO; +TRADJENTA5 MG PO
== END ==
LOC: HYPER 13:58
PROVIDERS: ATTEND Emergency Medicine
DX: T81.32XA Disruption of internal operation (surgical) wound, not elsewhere classified, initial encounter (principal); E11.622 Type 2 diabetes mellitus with other skin ulcer; L98.412 Non-pressure chronic ulcer of buttock with fat layer exposed; L02.31 Cutaneous abscess of buttock; E11.65 Type 2 diabetes mellitus with hyperglycemia; E66.9 Obesity, unspecified; I10 Essential (primary) hypertension; F41.9 Anxiety disorder, unspecified; Z68.35 Body mass index [BMI] 35.0-35.9, adult; Y92.238 Other place in hospital as the place of occurrence of the external cause; Y83.8 Other surgical procedures as the cause of abnormal reaction of the patient, or of later complication, without mention of misadventure at the time of the procedure